=== PATIENT | male | born 1995 | race Caucasian/White ===

== ENCOUNTER 2021-11-02 13:43 | Emergency (ER) | payer OTHER ==
[~2021-11-02] VITALS: Ht 185.4 cm; Wt 70.0 kg
[2021-11-02] MEDS ORDERED: ACETAMINOPHEN 500 MG TAB PO ONE (17:00)
[2021-11-02 18:04] VITALS: BP 128/82
== END 2021-11-02 18:05 | disposition home or self-care (01) ==
LOC: M ED 13:43
DX: S39.012A Strain of muscle, fascia and tendon of lower back, initial encounter (principal); X50.3XXA Overexertion from repetitive movements, initial encounter; Y92.9 Unspecified place or not applicable; Y93.29 Activity, other involving ice and snow; Y99.9 Unspecified external cause status